=== PATIENT | female | born 1995 | race Caucasian/White ===

== ENCOUNTER 2021-09-08 20:51 | Inpatient (IN) ==
[2021-09-08] MEDS ORDERED: miSOPROStoL 200 MCG TABLET RECTAL PRN (22:15)
[2021-09-08] MEDS ORDERED: OXYTOCIN/LR 20 UNIT/1,000 ML BAG IV ONE (22:15)
[2021-09-08] MEDS ORDERED: TRANEXAMIC ACID 1,000 MG in SODIUM CHLORIDE 0.9% 100 ML IV PRN (22:15)
[2021-09-08] MEDS ORDERED: METHYLERGONOVINE 0.2 MG/1 ML AMP IM PRN (22:15)
[2021-09-08] MEDS ORDERED: ONDANSETRON 4 MG/2 ML VIAL IV PRN (22:15)
[2021-09-08] MEDS ORDERED: BUTORPHANOL 2 MG/ML VIAL IV PRN (22:15)
[2021-09-08] MEDS ORDERED: MEPERIDINE 50 MG/1 ML VIAL IV PRN (22:15)
[2021-09-08] MEDS ORDERED: CARBOPROST TROMETHAMINE 250 MCG/ML AMP IM PRN (22:15)
[2021-09-08 22:38] LABS: Basophils # 0.1 10*3/uL (0.0-0.2); Basophils % 0.4 % (0.0-0.8); Eosinophils # 0.1 10*3/uL (0.0-0.87); Eosinophils % 0.3 % (0.00-10.9); Hematocrit 35.9 VOL% (35.7-47.0); Hemoglobin 12.2 GM/DL (12.0-16.0); Immature Granulocytes % 3.9 %; Immature Granulocytes Absolute 0.73 #; Lymphocytes # 2.2 10*3/uL (1.4-4.0); Lymphocytes % 11.8 % (21.3-54.2); Mean Corpuscular Volume 90.2 FL (87-102); Mean Platelet Volume 10.3 FL (9.6-12.0); Monocytes # 0.9 10*3/uL (0.11-0.8); Monocytes % 4.8 % (1.7-12.7); Neutrophils % 78.8 % (38.7-73.9); Platelet Count 197 T/CUMM (130-400); Red Blood Count 3.98 MC/CUMM (3.8-5.5); Red Cell Distribution Width 13.1 % (9.3-17.3); White Blood Count 18.8 T/CUMM (4-12)
[2021-09-08 22:58] LABS: Atypical Lymphocytes Few; Band Neutrophils 2 % (0-10); Eosinophils 2 % (0-10); Lymphocytes 15 % (20-55); Metamyelocytes 1 %; Total Cells Counted 100
[2021-09-08 22:59] LABS: Platelet Estimate Adequate
[2021-09-09] MEDS ORDERED: PROMETHAZINE 25 MG/1 ML VIAL IM ONE (07:12)
[2021-09-09] MEDS ORDERED: FAMOTIDINE 20 MG/2 ML VIAL IV ONE (07:12)
[2021-09-09] MEDS ORDERED: diphenhydrAMINE 50 MG/1 ML VIAL IV PRN ×2 (07:12)
[2021-09-09] MEDS ORDERED: hydrOXYzine HCL 25 MG/1 ML VIAL IM PRN (07:12)
[2021-09-09] MEDS ORDERED: NALOXONE 0.4 MG/ML VIAL IV PRN (07:12)
[2021-09-09] MEDS ORDERED: CITRIC ACID/SODIUM CITRATE 30 ML UDCUP PO ONE (07:12)
[2021-09-09] MEDS ORDERED: ePHEDrine 50 MG/ML VIAL IV PRN (07:12)
[2021-09-09] MEDS: LACTATED RINGERS 1,000 ML IV SCH ×2 (07:24→09:59)
[2021-09-09] MEDS ORDERED: fentaNYL 2 MCG/ROPIV 0.2% EPID 100 ML EPIDURAL SCH (07:30)
[2021-09-09 08:14] LABS: INR 0.9; PT Patient Result 9.8 SECS (10.5-12.0); Partial Thromboplastin Time 25.8 SECS (23.8-32.1)
[2021-09-09] MEDS ORDERED: OXYTOCIN/LR 20 UNIT/1,000 ML BAG IV SCH (10:30)
[2021-09-09 11:32] LABS: Bilirubin,Urine Negative (Negative); Blood, Urine Negative (Negative); Glucose,Urine (UA) Negative (Negative); Ketones,Urine Trace mg/dL (Negative); Nitrite,Urine Negative (Negative); Protein,Urine Negative (Negative); RBC,Urine <1 /HPF (0-4); Urine Appearance Clear (Clear); Urine Color Yellow (Yellow); Urine Specific Gravity 1.015 (1.001-1.035); Urine Urobilinogen 0.2 eU/dL (<2.0)
[2021-09-09] MEDS ORDERED: TRANEXAMIC ACID 1,000 MG/10 ML VIAL ONE (13:00)
[2021-09-09] MEDS ORDERED: miSOPROStoL 200 MCG TABLET ONE (13:00)
[2021-09-09] MEDS ORDERED: CARBOPROST TROMETHAMINE 250 MCG/ML AMP IM ONE (13:01)
[2021-09-09] MEDS ORDERED: METHYLERGONOVINE 0.2 MG/1 ML AMP ONE (13:01)
[2021-09-09 13:33] LABS: Cord Arterial Blood HCO3 19.9 MMOL/L
[2021-09-09 13:36] LABS: Cord Venous Blood HCO3 23.2 MMOL/L; Cord Venous Blood PCO2 41.2 MMHG; Cord Venous Blood PO2 28.3
[2021-09-09] MEDS ORDERED: ACETAMINOPHEN 325 MG TABLET PO PRN (15:46)
[2021-09-09] MEDS ORDERED: OXYTOCIN/LR 20 UNIT/1,000 ML BAG IV ONE (15:46)
[2021-09-09] MEDS ORDERED: DIPH/TET/ACEL PERT BOOSTER VACCINE 0.5 ML VIAL IM ONE (15:46)
[2021-09-09] MEDS ORDERED: HYDROCORTISONE 2.5% RECTAL CREAM 30 GM TUBE TOP PRN (15:46)
[2021-09-09] MEDS ORDERED: WITCH HAZEL PADS 100/JAR TOP PRN (15:46)
[2021-09-09] MEDS ORDERED: RHO(D) IMMUNE GLOBULIN 300 MCG SYRINGE IM ONE (15:46)
[2021-09-09] MEDS ORDERED: BENZOCAINE 20%/MENTHOL 0.5% SPRAY 56 GM CAN TOP PRN (15:46)
[2021-09-09] MEDS ORDERED: MEASLES/MUMPS/RUBELLA VACCINE 0.5 ML VIAL SUBCUT ONE (15:46)
[2021-09-09] MEDS ORDERED: BISACODYL 10 MG SUPP RECTAL PRN (15:46)
[2021-09-09] MEDS ORDERED: ONDANSETRON 4 MG/2 ML VIAL IV PRN (15:46)
[2021-09-09] MEDS ORDERED: LANOLIN 50% CREAM 0.3 OZ TUBE TOP PRN (15:46)
[2021-09-09] MEDS ORDERED: oxyCODONE/ACETAMINOPHEN 5-325 MG TABLET PO PRN (15:46)
[2021-09-09] MEDS: oxyCODONE/ACETAMINOPHEN 5-325 MG TABLET PO PRN ×2 (16:14→22:17)
[2021-09-09] MEDS: IBUPROFEN 800 MG TABLET PO PRN (21:17)
[2021-09-09] MEDS: DOCUSATE SODIUM 100 MG CAPSULE PO SCH (21:18)
[2021-09-10] MEDS: oxyCODONE/ACETAMINOPHEN 5-325 MG TABLET PO PRN ×3 (03:55→18:11)
[2021-09-10 06:16] LABS: Basophils # 0.1 10*3/uL (0.0-0.2); Basophils % 0.4 % (0.0-0.8); Eosinophils # 0.2 10*3/uL (0.0-0.87); Eosinophils % 0.7 % (0.00-10.9); Hematocrit 31.1 VOL% (35.7-47.0); Hemoglobin 10.5 GM/DL (12.0-16.0); Immature Granulocytes % 2.4 %; Immature Granulocytes Absolute 0.56 #; Lymphocytes # 2.5 10*3/uL (1.4-4.0); Lymphocytes % 10.8 % (21.3-54.2); Mean Corpuscular HGB Conc 33.8 GM/DL (32-36); Mean Corpuscular Volume 91.2 FL (87-102); Mean Platelet Volume 11.4 FL (9.6-12.0); Monocytes # 1.6 10*3/uL (0.11-0.8); Monocytes % 6.9 % (1.7-12.7); Neutrophils % 78.8 % (38.7-73.9); Platelet Count 174 T/CUMM (130-400); Red Blood Count 3.41 MC/CUMM (3.8-5.5); Red Cell Distribution Width 13.2 % (9.3-17.3); White Blood Count 23.1 T/CUMM (4-12)
[2021-09-10 06:44] LABS: Band Neutrophils 2 % (0-10); Lymphocytes 12 % (20-55); Total Cells Counted 100
[2021-09-10 06:45] LABS: Microcytosis Slight
[2021-09-10] MEDS: DOCUSATE SODIUM 100 MG CAPSULE PO SCH ×3 (07:38→22:14)
[2021-09-10] MEDS: IBUPROFEN 800 MG TABLET PO PRN ×2 (12:18→22:28)
[2021-09-11] MEDS: IBUPROFEN 800 MG TABLET PO PRN (05:38)
[2021-09-11] MEDS: DOCUSATE SODIUM 100 MG CAPSULE PO SCH (08:56)
[2021-09-11 11:19] VITALS: BP 105/55
== END 2021-09-11 13:43 | disposition home or self-care (01) | DRG 818 ==
LOC: N.LDOUT 20:51 → N.LD 20:52 → N.OB 09-09 15:45
PROVIDERS: ADMIT Specialist; ATTEND Specialist